=== PATIENT | female | born 1965 | race Caucasian/White ===

== ENCOUNTER 2019-10-29 14:24 | Emergency (ER) | payer OTHER, SELFPAY ==
[2019-10-29 14:34] VITALS: BP 129/85; PULSE 93; RESP 16; TEMP 36.7; O2SAT 99
--- NOTE | 2019-10-29 14:52 | ED.DENTAL ---
HPI - Dental/Oral General Chief complaint: Dental/Oral Stated complaint: tooth pain and fever blisters Time Seen by Provider: 10/29/19 14:53 Source: patient and RN notes reviewed History of Present Illness HPI Narrative: Patient is a 54-year-old female who presents the urgent care with complaints of right upper dental pain and fever blisters. Patient states that yesterday evening she broke off the right upper tooth and her dentist was unable to see her this afternoon. Patient states that the fever blisters also showed up yesterday and she has been using [id number] cream to the areas. Patient has been taking Tylenol and Advil for pain without much improvement. Denies of any known fever, nausea, vomiting. No other acute complaints. No acute distress noted. Patient read the plan of care. Related Data Allergies Allergy/AdvReac Type Severity Reaction Status Date / Time Penicillins Allergy Unknown Unverified 07/19/17 19:56 sulfamethoxazole AdvReac Unknown nausea Verified 07/19/17 19:56 trimethoprim AdvReac Unknown nausea Verified 07/19/17 19:56 Review of Systems Review of Systems: Narrative: CONSTITUTIONAL: Denies fever, chills, or sweats. EYES: Denies visual changes, redness, or discharge. ENT: Reports of right upper dental pain and fever blisters CARDIOVASCULAR: Denies chest pain, palpitations, or edema. RESPIRATORY: Denies cough or dyspnea. GASTROINTESTINAL: Denies abdominal pain, nausea, vomiting, or diarrhea. GENITOURINARY: Denies dysuria or hematuria. SKIN: Denies rash or itching. MUSCULOSKELETAL: Denies back pain, joint pain, or myalgia. NEUROLOGIC: Denies headache, numbness, or weakness. All other systems reviewed are negative, except as documented in HPI. PMFSH Comments At the time of my signature, I reviewed and agree with the nursing past medical, surgical, social, and family history. There is no relevant family history pertinent to the patient complaint. Exam Narrative: Exam Narrative: GENERAL: This is a well-nourished, well-developed patient, in no apparent distress. HEAD: normocephalic, atraumatic. EYES: PERRL. Sclera clear/white. Vision is grossly intact. EARS: External ears normal, auditory canals clear and without drainage, TMs normal without perforation. Hearing grossly intact. NOSE: External nose normal with no obvious nasal discharge, nares without redness, no rhinorrhea. THROAT: Mucous membranes moist, posterior pharynx clear. Upper left notable herpetic lesion and lower midline herpetic lesion- both appeared to be healing well DENTAL: Poor dentition throughout with notable caries; right upper second premolar, tooth #4 avulsed in large notable caries with possible root exposure with mild surrounding erythema NECK: Neck supple SKIN: warm, intact with no suspicious lesions or rash, good texture and turgor. NEURO: awake, alert, and oriented to person, place and time. There were no obvious focal neurologic abnormalities. EXTREMITIES: No clubbing, cyanosis, or edema. Course Vital Signs Vital signs: Vital Signs Temperature 98.0 F 10/29/19 14:34 Pulse Rate 93 10/29/19 14:34 Respiratory Rate 16 10/29/19 14:34 Blood Pressure 129/85 10/29/19 14:34 Pulse Oximetry 99 10/29/19 14:34 Temperature 98.0 F 10/29/19 14:34 Pulse Rate 93 10/29/19 14:34 Respiratory Rate 16 10/29/19 14:34 Blood Pressure 129/85 10/29/19 14:34 Pulse Oximetry 99 10/29/19 14:34 Reviewed MDM - Dental/Oral MDM Narrative Medical decision making narrative: Advised patient to complete oral antibiotic regimen as prescribed. Make sure to eat and drink with medication. Practice good oral hygiene with brushing and flossing twice daily. Use [id number] Prevention mouthwash twice a day. Use ibuprofen as needed for pain. Increase water intake when taking the medication. Complete antiviral medication as directed and may use [id number] Abreva. Follow-up with your dentist within 2 to 5 days or for worsenin
== END 2019-10-29 15:09 | disposition home or self-care (01) ==
PROVIDERS: Emergency Provider Nurse Practitioner Family
DX: K04.7 Periapical abscess without sinus (principal); B00.1 Herpesviral vesicular dermatitis; S02.5XXA Fracture of tooth (traumatic), initial encounter for closed fracture; X58.XXXA Exposure to other specified factors, initial encounter
CPT/HCPCS: 99213; G0463

== ENCOUNTER 2020-01-07 14:42 | Emergency (ER) | payer OTHER, SELFPAY ==
[2020-01-07 15:00] VITALS: BP 103/75; PULSE 70; RESP 20; TEMP 36.8; O2SAT 99
--- NOTE | 2020-01-07 15:03 | ED.SKABFB ---
HPI - Skin/Abscess/Foreign Bdy General Chief complaint: Skin/Abscess/Foreign Body Stated complaint: bite on back of head Time Seen by Provider: 01/07/20 15:03 Source: patient and RN notes reviewed History of Present Illness HPI narrative: Patient is a 54-year-old female who presents the urgent care with complaints of a possible spider bite to the back of the head . 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 Patient states that she has picked on the area and does believe it is draining. Patient also reports that she has a history of MRSA. Denies of any known fever even though she has had a subjective fever. No nausea, vomiting, diarrhea. No acute distress noted. Patient aware of the plan of care. Some parts of this dictation were generated by voice recognition software and may contain typographical and/or grammatical inaccuracies. Related Data Allergies Allergy/AdvReac Type Severity Reaction Status Date / Time Penicillins Allergy Unknown Unknown Verified 01/07/20 15:06 sulfamethoxazole AdvReac Unknown nausea Verified 01/07/20 15:06 trimethoprim AdvReac Unknown nausea Verified 01/07/20 15:06 Review of Systems Review of Systems: Narrative: CONSTITUTIONAL: Denies fever, chills, or sweats. EYES: Denies visual changes, redness, or discharge. ENT: Denies rhinorrhea, congestion, sore throat, or otalgia. CARDIOVASCULAR: Denies chest pain, palpitations, or edema. RESPIRATORY: Denies cough or dyspnea. GASTROINTESTINAL: Denies abdominal pain, nausea, vomiting, or diarrhea. GENITOURINARY: Denies dysuria or hematuria. SKIN: Reports of a possible spider bite to the back of the head MUSCULOSKELETAL: Denies back pain, joint pain, or myalgia. NEUROLOGIC: Denies headache, numbness, or weakness. All other systems reviewed are negative, except as documented in HPI. PMFSH Comments At the time of my signature, I reviewed and agree with the nursing past medical, surgical, social, and family history. There is no relevant family history pertinent to the patient complaint. Exam Narrative: Exam Narrative: GENERAL: This is a well-nourished, well-developed patient, in no apparent distress. HEAD: normocephalic, atraumatic. EYES: PERRL. Sclera clear/white. Vision is grossly intact. EARS: External ears normal NOSE: External nose normal with no obvious nasal discharge, nares without redness, no rhinorrhea. THROAT: Mucous membranes moist NECK: Neck supple SKIN: 0.5 cm opening, draining infected folliculitis with surrounding 1 cm erythema to the back of the head NEURO: awake, alert, and oriented to person, place and time. There were no obvious focal neurologic abnormalities. EXTREMITIES: No clubbing, cyanosis, or edema. Course Vital Signs Vital signs: Vital Signs Temperature 98.3 F 01/07/20 15:00 Pulse Rate 70 01/07/20 15:00 Respiratory Rate 20 01/07/20 15:00 Blood Pressure 103/75 01/07/20 15:00 Pulse Oximetry 99 01/07/20 15:00 Temperature 98.3 F 01/07/20 15:07 Pulse Rate 70 01/07/20 15:07 Respiratory Rate 20 01/07/20 15:07 Blood Pressure 103/75 01/07/20 15:07 Pulse Oximetry 99 01/07/20 15:07 Reviewed MDM - Skin/Abscess/Foreign Bdy MDM Narrative Medical decision making narrative: Advised the patient to stop picking on the area. May use Neosporin on the area, for comfort. Otherwise complete oral antibiotic as directed. Make sure to eat and drink with the medication. Clean the scalp with nonscented shampoo. If you develop any increase in symptoms associated with severe redness, swelling, drainage, fever, nausea, vomiting?go to the emergency room. Follow-up with your PCP within 2 to 5 days or for worsening symptoms or failure to improve. Patient verbalized her concern for yeast infection after completion of oral antibiotics. Advised the patient to take the one
[2020-01-07 15:07] VITALS: BP 103/75; PULSE 70; RESP 20; TEMP 36.8; O2SAT 99
== END 2020-01-07 15:10 | disposition home or self-care (01) ==
PROVIDERS: Emergency Provider Nurse Practitioner Family; PCP Physician Assistant
DX: L73.9 Follicular disorder, unspecified (principal); Z86.14 Personal history of Methicillin resistant Staphylococcus aureus infection
CPT/HCPCS: 99213; G0463